=== PATIENT | female | born 1935 | race Caucasian/White ===

== ENCOUNTER 2020-10-22 16:23 | Inpatient (IN) | payer MEDICARE, OTHER ==
[~2020-10-22] VITALS: Ht 162.6 cm; Wt 65.1 kg
[~2020-10-22 16:23] MED LIST: AMLO-213 PO; ASPI81TA44 PO; ATOR40TA PO; BLOO-140 IN; CLON0.5T4 PO; GABA-532 PO; OLOP2.5D12 EACHEYE; REPA1TAB7 PO; SOTA80TA PO; SPIR1TAB4 PO
--- NOTE | 2020-10-22 16:30 | NUR ---
BIB RA [facility] FROM A CARE FACILITY,MORE ALTERED THAN NORMAL X 1 HR. ON ROOM AIR, BREATHING EVENLY AND UNLABORED. CONNECTED TO THE MONITOR ACCORDINGLY.
[2020-10-22 17:11] LABS: BASOPHILS % (AUTO) 0.6 % (0.0-2.0); EOSINOPHILS % (AUTO) 3.3 % (0.0-6.0); HEMATOCRIT 37 % (33-45); HEMOGLOBIN 11.9 g/dL (11.5-14.8); LYMPHOCYTES # (AUTO) 1.8 /CMM (0.8-4.8); LYMPHOCYTES % (AUTO) 22.5 % (20.0-44.0); MEAN CORPUSCULAR HGB CONC 32 g/dl (31.0-36.0); MEAN CORPUSCULAR VOLUME 93 fL (82-100); MONOCYTES # (AUTO) 0.5 /CMM (0.1-1.30); NEUTROPHILS # (AUTO) 5.3 /CMM (1.8-8.9); NEUTROPHILS % (AUTO) 67.6 % (43.0-81.0); PLATELET COUNT (AUTO) 433 /CMM (150-450); RED BLOOD CELL COUNT(AUTO) 3.99 MIL/uL (4.0-5.2); WHITE BLOOD COUNT (AUTO) 7.9 K/uL (4.3-11.0)
[2020-10-22] MEDS ORDERED: ACET-868 PO (17:14)
[2020-10-22] MEDS ORDERED: ASPI-1420 PO (17:14)
[2020-10-22] MEDS ORDERED: POTA8TAB3 PO (17:14)
[2020-10-22] MEDS ORDERED: MULT-447 PO (17:14)
[2020-10-22] MEDS ORDERED: BISA10SU11 RC (17:14)
[2020-10-22] MEDS ORDERED: APIX2.5T PO (17:14)
[2020-10-22] MEDS ORDERED: FURO-144 PO (17:14)
[2020-10-22] MEDS ORDERED: NA P133E RC (17:14)
[2020-10-22] MEDS ORDERED: LORA-259 PO (17:14)
[2020-10-22] MEDS ORDERED: DOCU-141 PO (17:14)
[2020-10-22] MEDS ORDERED: MAGN400O6 PO (17:14)
[2020-10-22] MEDS ORDERED: LISI10TA29 PO (17:14)
[2020-10-22] MEDS ORDERED: PANT40TA2 PO (17:14)
[2020-10-22] MEDS ORDERED: ZOLP10TA2 PO (17:14)
--- NOTE | 2020-10-22 17:15 | NUR ---
RECEIVED REPORT FROM DAY SHIFT NURSE FOR AGUSTÍN, PATIENT RECEIVING BREATHING Tx, VSS. Addendum: 10/22/20 at 1947 by TERRI 1914
[2020-10-22 17:30] LABS: ALANINE AMINOTRANSFERASE 42 U/L (12-78); ALBUMIN 2.6 g/dL (3.4-5.0); ALKALINE PHOSPHATASE 105 U/L (46-116); ASPARTATE AMINOTRANSFERASE 33 U/L (15-37); BILIRUBIN,DIRECT 0.1 mg/dL (0.0-0.2); BILIRUBIN,TOTAL 0.3 mg/dL (0.2-1.0); CALCIUM, SERUM 10.1 mg/dL (8.5-10.1); CARBON DIOXIDE 22 mmol/L (21-32); CHLORIDE 113 mmol/L (98-107); CREATININE 2.8 mg/dL (0.6-1.3); GLUCOSE 92 mg/dL (74-106); SODIUM SERUM 144 mmol/L (136-145); TOTAL PROTEIN, SERUM 7.4 g/dL (6.4-8.2); UREA NITROGEN, BLOOD 74 mg/dL (7-18)
[2020-10-22 17:42] LABS: POTASSIUM 7.2 mmol/L (3.5-5.1)
[2020-10-22 18:01] LABS: BILIRUBIN,URINE Negative (NEGATIVE); COLOR,URINE YELLOW (YELLOW); LEUKOCYTE ESTERASE ,URINE Trace (NEGATIVE); NITRITE, URINE Negative (NEGATIVE); PROTEIN,URINE Negative (NEGATIVE); UGLUCOSE Negative (NEGATIVE); UROBILINOGEN,URINE 0.2 EU/dL (0.2)
--- NOTE | 2020-10-22 18:02 | NUR ---
urine collected and sent to lab.
[2020-10-22 18:13] LABS: BACTERIA,URINE Many /HPF (None Seen); SQUAMOUS EPITHELIAL CELL,UR Many /HPF (None Seen)
[2020-10-22] MEDS ORDERED: INSULIN REGULAR, HUMAN 100 UNIT/ML 10 ML VIAL IV ONE (18:30)
[2020-10-22] MEDS ORDERED: ALBUTEROL FS 2.5 MG/3 ML VIAL.NEB NEB ONE (18:30)
[2020-10-22] MEDS ORDERED: ALBUTEROL FS 2.5 MG/0.5 ML VIAL.NEB NEB ONE (18:30)
[2020-10-22] MEDS ORDERED: SODIUM POLYSTYRENE SULFONATE 15 G/60 ML BOTTLE RC ONE (18:30)
[2020-10-22] MEDS ORDERED: DEXTROSE 50%-WATER 50 ML DISP.SYRIN IV ONE (18:30)
[2020-10-22] MEDS ORDERED: SODIUM POLYSTYRENE SULFONATE 15 G/60 ML BOTTLE ONE (18:33)
[2020-10-22] MEDS ORDERED: DEXTROSE 50%-WATER 50 ML DISP.SYRIN ONE (18:33)
[2020-10-22] MEDS ORDERED: INSULIN REGULAR, HUMAN 100 UNIT/ML 10 ML VIAL ONE (18:33)
[2020-10-22] MEDS ORDERED: ALBUTEROL FS 2.5 MG/3 ML VIAL.NEB ONE (18:42)
[2020-10-22] MEDS ORDERED: MAG HYDROX/AL HYDROX/SIMETH 30 ML UDC PO PRN (19:00)
[2020-10-22] MEDS ORDERED: IV NS 0.9% 500 ML BAG IV ONE (19:00)
[2020-10-22] MEDS ORDERED: ZOLPIDEM TARTRATE 5 MG TABLET PO PRN (19:00)
[2020-10-22] MEDS ORDERED: Z GUARD REMEDY 2 OZ OINT TP PRN (19:00)
[2020-10-22] MEDS ORDERED: MAGNESIUM HYDROXIDE 30 ML UDC PO PRN (19:00)
[2020-10-22] MEDS ORDERED: ONDANSETRON HCL/PF 4 MG/2 ML VIAL IVP PRN (19:00)
[2020-10-22 19:16] LABS: CALCIUM, SERUM 9.6 mg/dL (8.5-10.1); CARBON DIOXIDE 24 mmol/L (21-32); CHLORIDE 114 mmol/L (98-107); CREATININE 2.9 mg/dL (0.6-1.3); GLUCOSE 304 mg/dL (74-106); SODIUM SERUM 144 mmol/L (136-145); UREA NITROGEN, BLOOD 76 mg/dL (7-18)
[2020-10-22 19:17] LABS: POTASSIUM 6.4 mmol/L (3.5-5.1)
[2020-10-22] MEDS ORDERED: DEXTROSE 50%-WATER 50 ML DISP.SYRIN IV PRN (19:30)
[2020-10-22] MEDS ORDERED: IV NS 0.9% 1,000 ML IV PRN (19:30)
--- NOTE | 2020-10-22 20:23 | NUR ---
CALLED TO GIVE REPROT, NURSE PRESTON WILL CALL BACK FOR REPROT
[2020-10-22] MEDS ORDERED: SODIUM POLYSTYRENE SULFONATE 15 G/60 ML BOTTLE PO ONE (20:30)
[2020-10-22 20:33] LABS: CREATININE, URINE 54.8 MG/DL (30.0-125.0)
--- NOTE | 2020-10-22 20:44 | NUR ---
REPROT GIVEN TO KITA EVANS PT GOING TO 108
--- NOTE | 2020-10-22 21:07 | NUR ---
PT TRANSFERRED PER ACLS PROTOCOL
[2020-10-22 22:00] VITALS: BP 95/55
[2020-10-22] MEDS: ATORVASTATIN 40 MG TABLET PO SCH (22:00)
[2020-10-22] MEDS ORDERED: CEFTRIAXONE 1 G VIAL ONE (22:29)
[2020-10-22] MEDS: CEFTRIAXONE 1 G in IV D5W 50 ML IV SCH (22:32)
[2020-10-22] MEDS: BLOOD SUGAR DIAGNOSTIC 1 EACH STRIP IN SCH (22:34)
[2020-10-22] MEDS: IV D5/0.45 NACL 1,000 ML IV SCH (22:35)
[2020-10-23] VITALS: BP 96/32
[2020-10-23 04:00] VITALS: BP 115/77
[2020-10-23 06:31] LABS: BASOPHILS % (AUTO) 0.2 % (0.0-2.0); EOSINOPHILS % (AUTO) 0.4 % (0.0-6.0); HEMATOCRIT 34 % (33-45); HEMOGLOBIN 10.8 g/dL (11.5-14.8); LYMPHOCYTES # (AUTO) 1.1 /CMM (0.8-4.8); LYMPHOCYTES % (AUTO) 13.6 % (20.0-44.0); MEAN CORPUSCULAR HGB CONC 32 g/dl (31.0-36.0); MEAN CORPUSCULAR VOLUME 94 fL (82-100); MONOCYTES # (AUTO) 0.5 /CMM (0.1-1.30); MONOCYTES % (AUTO) 6.2 % (2.0-12.0); NEUTROPHILS # (AUTO) 6.5 /CMM (1.8-8.9); NEUTROPHILS % (AUTO) 79.6 % (43.0-81.0); PLATELET COUNT (AUTO) 384 /CMM (150-450); RED BLOOD CELL COUNT(AUTO) 3.62 MIL/uL (4.0-5.2); WHITE BLOOD COUNT (AUTO) 8.2 K/uL (4.3-11.0)
[2020-10-23 07:25] LABS: CALCIUM, SERUM 9.9 mg/dL (8.5-10.1); CARBON DIOXIDE 20 mmol/L (21-32); CHLORIDE 114 mmol/L (98-107); CREATININE 3.2 mg/dL (0.6-1.3); GLUCOSE 329 mg/dL (74-106); MAGNESIUM 2.6 mg/dL (1.8-2.4); PHOSPHORUS 5.4 mg/dL (2.5-4.9); SODIUM SERUM 146 mmol/L (136-145); UREA NITROGEN, BLOOD 74 mg/dL (7-18)
[2020-10-23 07:41] LABS: POTASSIUM 7.4 mmol/L (3.5-5.1)
[2020-10-23 08:00] VITALS: BP 111/38
--- NOTE | 2020-10-23 08:00 | NUR ---
maintenance mechanic telephone note patient in bed alert with confusion , on tele monitor st on2 l nc saturation, bed in lowest and locked position per dr Rober shepherd to do swallow eval ,safety measure provided , call light within reach , on 2l nc of o2 96% , new hl on lt ac nay 20 inserted ,awaiting for mid line to place , will cont to monitor
[2020-10-23] MEDS: BLOOD SUGAR DIAGNOSTIC 1 EACH STRIP IN SCH ×4 (08:55→21:45)
[2020-10-23] MEDS: DOCUSATE SODIUM 100 MG CAPSULE PO SCH ×2 (08:56→17:00)
[2020-10-23] MEDS: ASPIRIN EC 81 MG TABLET.DR PO SCH (08:56)
[2020-10-23] MEDS: MULTIVIT W/MINERALS 1 TAB TABLET PO SCH (08:56)
[2020-10-23] MEDS: AMLODIPINE BESYLATE 10 MG TABLET PO SCH (08:57)
[2020-10-23] MEDS: APIXABAN 2.5 MG TABLET PO SCH ×2 (09:00→17:02)
[2020-10-23] MEDS: PANTOPRAZOLE 40 MG TABLET.DR PO SCH (09:03)
[2020-10-23] MEDS: INSULIN REGULAR, HUMAN 100 UNIT/ML 3 ML VIAL SQ PRN ×4 (09:04→21:47)
[2020-10-23] MEDS: IV D5/0.45 NACL 1,000 ML IV SCH ×2 (09:28→23:22)
--- NOTE | 2020-10-23 09:30 | NUR ---
television news producer note swallow eval done will have puree diet , able to take po meds , called to dr Rober Zhou notified that k 7.4 stated call to drawer fitter
[2020-10-23] MEDS ORDERED: Calcium Gluconate 1GM/10ML 4.65 MEQ in IV D5W 50 ML IV ONE (10:30)
[2020-10-23] MEDS ORDERED: INSULIN REGULAR, HUMAN 100 UNIT/ML 3 ML VIAL IV ONE (10:30)
[2020-10-23] MEDS ORDERED: DEXTROSE 50%-WATER 50 ML DISP.SYRIN IVP ONE ×2 (10:30)
--- NOTE | 2020-10-23 11:24 | NUR ---
telecommunications professional note dr barreto paper winder called back and yuki Zhou order to redrew bmp also per dr matson administer 10 units insulin iv , 1 gm ca gluconate and 1 amp d50% , done as ordered will monitor closely
--- NOTE | 2020-10-23 11:26 | NUR ---
WOUND CARE CONSULT: REVIEWED CHART, NURSING DOCUMENTATION AND PHOTO WHICH INDICATES UNSTAGEABLE SACRAL ULCER, PRESENT ON ADMISSION. RECOMMENDATIONS MADE FOR SKIN PROTECTION. DISCUSSED WITH NURSING STAFF. DR LÓPEZ CALLED FOR SURGICAL CONSULT. PT IS ON [place] ISOFLEX LOW AIRLOSS BED. MD IN AGREEMENT WITH PLAN OF CARE.
[2020-10-23 11:44] LABS: CALCIUM, SERUM 9.8 mg/dL (8.5-10.1); CARBON DIOXIDE 21 mmol/L (21-32); CHLORIDE 114 mmol/L (98-107); GLUCOSE 261 mg/dL (74-106); SODIUM SERUM 145 mmol/L (136-145); UREA NITROGEN, BLOOD 72 mg/dL (7-18)
[2020-10-23 11:52] LABS: POTASSIUM 6.9 mmol/L (3.5-5.1)
[2020-10-23 12:00] VITALS: BP 120/41
--- NOTE | 2020-10-23 14:28 | NUR ---
television and radio repairer note dr SIMON AWARE OF PATIENT CONDITION ,SPOKE WITH FAMILY
--- NOTE | 2020-10-23 15:57 | NUR ---
RN NOTE SPOKE WITH PATIENTS DAUGHTER, DAUGHTER SAID OKAY FOR PATIENT TO START DIALYSIS. CHARGE NURSE BOSSMAN WITNESSED
[2020-10-23 16:00] VITALS: BP 116/33
--- NOTE | 2020-10-23 16:46 | NUR ---
television anchor note hd cath placed by Rober Zhou dnp on rt femoral
--- NOTE | 2020-10-23 18:30 | NUR ---
telephone lines repairer note hd started as ordered
--- NOTE | 2020-10-23 18:50 | NUR ---
RN CLOSING NOTES PT IS ALERT & ORIENTED WITH SLIGHT CONFUSION. PT IS ON 2L N/C NO SOB, ABLE TO EAT PUREED DIET WELL, FED BY BILLET GRINDER. PT IS ON DIALYSIS, ON IV FLUIDS. ALL NEEDS ATTENDED. BED IN LOWEST POSITION. CALL LIGHT WITHIN REACH. WILL CONTINUE TO MONITOR.
--- NOTE | 2020-10-23 19:40 | NUR ---
RN NOTE PATIENT IN BED AWAKE AND RESPONSIVE. ON O2 2L VIA NASAL CANNULA, NO SIGNS OF RESPIRATORY DISTRESS. NO SIGNS OF DISCOMFORT. ONGOING DIALYSIS VIA RIGHT FEMORAL HD CATH, TOLERATING WELL. WITH MOFFETT CATH, PATENT AND INTACT. IV ACCESS ON LEFT AC #20 AND LEFT UPPER ARM MIDLINE RUNNING D5 1/2 NS @ 75ML/HR. NO SIGNS OF INFILTRATION. BED LOCKED AND IN LOWEST POSITION. SAFETY MEASURES MAINTAINED. CALL LIGHT WITHIN REACH.
[2020-10-23 20:00] VITALS: BP 106/34
[2020-10-23] MEDS: CEFTRIAXONE 1 G in IV D5W 50 ML IV SCH (20:15)
--- NOTE | 2020-10-23 20:15 | NUR ---
PATIENT COMPLETED DIALYSIS. 0 OUTPUT, CLEANING ONLY. ALL NEEDS ANTICIPATED.
[2020-10-23] MEDS: ATORVASTATIN 40 MG TABLET PO SCH (21:35)
[2020-10-24] VITALS: BP 96/49
[2020-10-24 04:00] VITALS: BP 140/57
--- NOTE | 2020-10-24 06:43 | NUR ---
RN NOTE PATIENT ALERT AND ORIENTED X1-2. ON ROOM AIR, O2 SAT 100%. NO SIGNS OF DISCOMFORT. MOFFETT CATH PATENT AND INTACT. IV ACCESS ON LEFT AC #20 AND LEFT UPPER ARM MIDLINE RUNNING D5 1/2 NS @ 75ML/HR. NO SIGNS OF INFILTRATION. TOLERATED BED BATH, TURNED AND REPOSITIONED. BED LOCKED AND IN LOWEST POSITION. SAFETY MEASURES MAINTAINED. CALL LIGHT WITHIN REACH. WILL ENDORSE TO AM SHIFT.
[2020-10-24 06:57] LABS: BASOPHILS % (AUTO) 0.4 % (0.0-2.0); EOSINOPHILS % (AUTO) 3.2 % (0.0-6.0); HEMATOCRIT 31 % (33-45); HEMOGLOBIN 10.2 g/dL (11.5-14.8); LYMPHOCYTES # (AUTO) 1.6 /CMM (0.8-4.8); MEAN CORPUSCULAR HGB CONC 33 g/dl (31.0-36.0); MEAN CORPUSCULAR VOLUME 92 fL (82-100); MONOCYTES # (AUTO) 0.5 /CMM (0.1-1.30); MONOCYTES % (AUTO) 6.3 % (2.0-12.0); NEUTROPHILS % (AUTO) 68.1 % (43.0-81.0); PLATELET COUNT (AUTO) 305 /CMM (150-450); RED BLOOD CELL COUNT(AUTO) 3.33 MIL/uL (4.0-5.2); WHITE BLOOD COUNT (AUTO) 7.4 K/uL (4.3-11.0)
--- NOTE | 2020-10-24 07:44 | NUR ---
GREIGE GOODS INSPECTOR OPENING NOTE RECEIVED PATIENT RESTING IN BED. EASY TO AROUSE. ALERT AND ORIENTED X1-2. SURINAMESE/TAMAZIGHT SPEAKING. STABLE ON ROOM AIR, O2 SAT 100% - NO SIGNS OF SOB OR DISCOMFORT. MOFFETT CATH PATENT AND INTACT, DRAINING TO GRAVITY. IV ACCESS TO LEFT AC #20 - PATENT AND INTACT, LEFT UPPER ARM MIDLINE - RUNNING D5 1/2 NS @ 75ML/HR. SAFETY MEASURES IN PLACE. CALL LIGHT WITHIN REACH. WILL CONTINUE TO MONITOR.
[2020-10-24 07:47] LABS: CALCIUM, SERUM 9.1 mg/dL (8.5-10.1); CARBON DIOXIDE 23 mmol/L (21-32); CHLORIDE 110 mmol/L (98-107); CREATININE 2.1 mg/dL (0.6-1.3); GLUCOSE 193 mg/dL (74-106); MAGNESIUM 2.3 mg/dL (1.8-2.4); PHOSPHORUS 3.1 mg/dL (2.5-4.9); POTASSIUM 5.6 mmol/L (3.5-5.1); SODIUM SERUM 142 mmol/L (136-145); UREA NITROGEN, BLOOD 44 mg/dL (7-18)
[2020-10-24 08:00] VITALS: BP 133/57
[2020-10-24] MEDS: BLOOD SUGAR DIAGNOSTIC 1 EACH STRIP IN SCH ×4 (08:17→21:35)
[2020-10-24] MEDS: PANTOPRAZOLE 40 MG TABLET.DR PO SCH (08:17)
[2020-10-24] MEDS: DOCUSATE SODIUM 100 MG CAPSULE PO SCH ×2 (08:18→17:10)
[2020-10-24] MEDS: MULTIVIT W/MINERALS 1 TAB TABLET PO SCH (08:18)
[2020-10-24] MEDS: ASPIRIN EC 81 MG TABLET.DR PO SCH (08:18)
[2020-10-24] MEDS: AMLODIPINE BESYLATE 10 MG TABLET PO SCH (08:20)
[2020-10-24] MEDS: APIXABAN 2.5 MG TABLET PO SCH ×2 (08:21→17:10)
[2020-10-24] MEDS: INSULIN REGULAR, HUMAN 100 UNIT/ML 3 ML VIAL SQ PRN ×3 (08:29→21:38)
[2020-10-24 12:00] VITALS: BP 106/52
[2020-10-24] MEDS: IV D5/0.45 NACL 1,000 ML IV SCH (12:52)
[2020-10-24 16:02] VITALS: BP 106/52
--- NOTE | 2020-10-24 16:15 | NUR ---
THERAPEUTIC SALES SPECIALIST NOTE NOTED PATIENT'S LEFT ARM MORE SWOLLEN THAN THIS MORNING. BP ALSO LOW @ 99/44. DR. APPIAH NOTIFIED - ASSESSED PATIENT. NO ORDERS GIVEN. PATIENT TO RECEIVE DIALYSIS LATER TODAY.
--- NOTE | 2020-10-24 19:16 | NUR ---
COACH MECHANIC CLOSING NOTE PATIENT CURRENTLY LYING IN BED, DIALYSIS NURSE AT BEDSIDE - PATIENT IS CURRENTLY RECEIVING DIALYSIS. A/O X2-3, PATIENT IS CONFUSED. LUCILLE, SON AT BEDSIDE WELL. UGANDAN/KOSOVAN SPEAKING, UNDERSTANDS SOME KHMER. STABLE ON ROOM AIR, O2 SAT 100% - NO SIGNS OF SOB OR DISCOMFORT. MOFFETT CATH PATENT AND INTACT, DRAINING TO GRAVITY, 700CC OUTPUT THIS SHIFT. IV ACCESS TO LEFT UPPER ARM MIDLINE - RUNNING D5 1/2 NS @ 75ML/HR. LEFT ARM SWELLING FROM MIDLINE INSERTION - PHOTO TAKEN AND IN CHART. MD AWARE. SAFETY MEASURES IN PLACE. CALL LIGHT WITHIN REACH. REPORT GIVEN TO WINDOW GLAZIER HELPER NURSE FOR AGUSTÍN.
--- NOTE | 2020-10-24 19:25 | NUR ---
RN NOTE PATIENT IN BED AWAKE AND RESPONSIVE. ON ROOM AIR, NO SIGNS OF RESPIRATORY DISTRESS. ONGOING DIALYSIS AT THIS TIME, TOLERATING WELL. MOFFETT CATH PATENT AND INTACT, YELLOW URINE DRAINING VIA GRAVITY. NO SIGNS OF DISCOMFORT. IV ACCESS ON LEFT AC #20 AND ANGELITO MIDLINE RUNNING D5 1/2 NS @ 75 ML/HR. BED LOCKED AND IN LOWEST POSITION. CALL LIGHT WITHIN REACH. ALL NEEDS ANTICIPATED.
[2020-10-24 20:00] VITALS: BP 119/45
--- NOTE | 2020-10-24 20:45 | NUR ---
DIALYSIS DONE. 250 ML REMOVED. VITAL SIGNS STABLE.
[2020-10-24] MEDS: ATORVASTATIN 40 MG TABLET PO SCH (21:35)
[2020-10-24] MEDS: ACETAMINOPHEN 325 MG TABLET PO PRN (21:35)
[2020-10-25] VITALS: BP 121/41
[2020-10-25] MEDS: IV D5/0.45 NACL 1,000 ML IV SCH ×2 (02:08→15:03)
[2020-10-25 04:00] VITALS: BP 120/41
[2020-10-25 06:29] LABS: BASOPHILS % (AUTO) 0.5 % (0.0-2.0); EOSINOPHILS % (AUTO) 4.2 % (0.0-6.0); HEMATOCRIT 29 % (33-45); HEMOGLOBIN 9.5 g/dL (11.5-14.8); LYMPHOCYTES # (AUTO) 2.5 K/uL (0.8-4.8); LYMPHOCYTES % (AUTO) 36.4 % (20.0-44.0); MEAN CORPUSCULAR HGB CONC 33 g/dl (31.0-36.0); MEAN CORPUSCULAR VOLUME 92 fL (82-100); MONOCYTES # (AUTO) 0.5 K/uL (0.1-1.30); MONOCYTES % (AUTO) 7.5 % (2.0-12.0); NEUTROPHILS # (AUTO) 3.5 K/uL (1.8-8.9); NEUTROPHILS % (AUTO) 51.4 % (43.0-81.0); PLATELET COUNT (AUTO) 263 K/uL (150-450); RED BLOOD CELL COUNT(AUTO) 3.18 MIL/uL (4.0-5.2); WHITE BLOOD COUNT (AUTO) 6.8 K/uL (4.3-11.0)
--- NOTE | 2020-10-25 06:41 | NUR ---
RN NOTE PATIENT ALERT AND ORIENTED X1-2. ON ROOM AIR, NO SIGNS OF RESPIRATORY DISTRESS. MOFFETT CATH PATENT AND INTACT, YELLOW URINE DRAINING VIA GRAVITY OUTPUT 600CC. NO SIGNS OF DISCOMFORT. IV ACCESS ON LEFT AC #20 AND ANGELITO MIDLINE RUNNING D5 1/2 NS @ 75 ML/HR. RIGHT FEMORAL HD CATH NOTED, DRESSING DRY AND INTACT. NO SIGNIFICANT CHANGES DURING THIS SHIFT. BED LOCKED AND IN LOWEST POSITION. CALL LIGHT WITHIN REACH. WILL ENDORSE TO AM SHIFT.
[2020-10-25 07:09] LABS: CALCIUM, SERUM 8.7 mg/dL (8.5-10.1); CARBON DIOXIDE 24 mmol/L (21-32); CHLORIDE 108 mmol/L (98-107); CREATININE 1.7 mg/dL (0.6-1.3); GLUCOSE 174 mg/dL (74-106); MAGNESIUM 2.1 mg/dL (1.8-2.4); PHOSPHORUS 2.8 mg/dL (2.5-4.9); POTASSIUM 5.6 mmol/L (3.5-5.1); SODIUM SERUM 139 mmol/L (136-145); UREA NITROGEN, BLOOD 34 mg/dL (7-18)
[2020-10-25] MEDS: BLOOD SUGAR DIAGNOSTIC 1 EACH STRIP IN SCH ×3 (07:30→16:58)
[2020-10-25] MEDS: PANTOPRAZOLE 40 MG TABLET.DR PO SCH ×2 (07:30→08:33)
--- NOTE | 2020-10-25 07:30 | NUR ---
RN OPENING NOTE GREEK SPEAKING PT IN BED SEMIFOWLER'S A/Ox1-2, SR 60s ON TELEBOX. PT HAS LT ARM BRUISING, PARKING LOT SIGNALER CLAY APPIAH AWARE- OK TO GIVE ANTICOAGULANTS PER CLAY. PT HAS ANGELITO MIDLINE INTACT, CURRENTLY INFUSING D5 1/2 NS @ 75 ML/HR, LAC #20 FLUSHED AND INTACT, BOTH PATENT WITH NO SIGNS OF INFECTION OR INFILTRATION. RT FEMORAL HD CATH NOTED. PT MOFFETT CATH INTACT AND DRAINING CLEAR YELLOW URINE TO GRAVITY. PT SACRAL WOUND NOTED, CLEAN DRY DRSG INTACT. ALL PT SAFETY PRECAUTIONS IN PLACE, WILL CONT TO MONITOR
[2020-10-25 08:00] VITALS: BP 122/47
--- NOTE | 2020-10-25 08:30 | NUR ---
RN NOTE PT REFUSED MORNING MEDS AND ACCUCHECK. ATTEMPTED MULTIPLE TIMES WITH NO SUCCESS
[2020-10-25] MEDS: DOCUSATE SODIUM 100 MG CAPSULE PO SCH ×3 (08:33→16:53)
[2020-10-25] MEDS: ASPIRIN EC 81 MG TABLET.DR PO SCH ×2 (08:33→09:00)
[2020-10-25] MEDS: MULTIVIT W/MINERALS 1 TAB TABLET PO SCH ×2 (08:33→09:00)
[2020-10-25] MEDS: AMLODIPINE BESYLATE 10 MG TABLET PO SCH ×2 (08:34→09:00)
[2020-10-25] MEDS: APIXABAN 2.5 MG TABLET PO SCH ×2 (09:00→16:56)
[2020-10-25] MEDS: HYDROGEL DRESSING 90 GM TUBE TP SCH (10:20)
[2020-10-25 12:00] VITALS: BP 127/47
[2020-10-25] MEDS: INSULIN REGULAR, HUMAN 100 UNIT/ML 3 ML VIAL SQ PRN ×2 (12:29→16:57)
[2020-10-25] MEDS: ACETAMINOPHEN 325 MG TABLET PO PRN (12:42)
[2020-10-25 16:00] VITALS: BP 114/30
--- NOTE | 2020-10-25 19:00 | NUR ---
RN CLOSING NOTE NO CHANGES TO PT DURING SHIFT. PT CURRENTLY RECEIVING HEMODIALYSIS. PT SON AT BEDSIDE. ALL PT SAFETY PRECAUTIONS IN PLACE, AGUSTÍN ENDORSED TO BOILERS AND PRESSURE VESSELS INSPECTOR RN
[2020-10-25 20:00] VITALS: BP 121/48
[2020-10-25] MEDS: ATORVASTATIN 40 MG TABLET PO SCH (22:00)
[2020-10-26] VITALS: BP 142/39
[2020-10-26] MEDS: BLOOD SUGAR DIAGNOSTIC 1 EACH STRIP IN SCH ×5 (01:49→23:04)
--- NOTE | 2020-10-26 02:53 | NUR ---
RN notes Received patient in bed resting comfortably with no distress noted. Breathing even and unlabored. Alert with confusion. Sami speaking with very little kown hebrew. Aggressive and anxious. S/p dialysis with output of 1,100ml. No side effect noted. No complaint of pain or discomfort. No significant change of conition. Kept clean and dry. Will endorse to next shift for continuity of care.
[2020-10-26 04:00] VITALS: BP 115/39
[2020-10-26 06:28] LABS: BASOPHILS % (AUTO) 0.7 % (0.0-2.0); EOSINOPHILS % (AUTO) 4.2 % (0.0-6.0); HEMATOCRIT 27 % (33-45); LYMPHOCYTES % (AUTO) 31.6 % (20.0-44.0); MEAN CORPUSCULAR HGB CONC 33 g/dl (31.0-36.0); MEAN CORPUSCULAR VOLUME 91 fL (82-100); MONOCYTES # (AUTO) 0.4 K/uL (0.1-1.30); MONOCYTES % (AUTO) 6.3 % (2.0-12.0); NEUTROPHILS # (AUTO) 3.6 K/uL (1.8-8.9); NEUTROPHILS % (AUTO) 57.2 % (43.0-81.0); PLATELET COUNT (AUTO) 223 K/uL (150-450); RED BLOOD CELL COUNT(AUTO) 2.99 MIL/uL (4.0-5.2); WHITE BLOOD COUNT (AUTO) 6.4 K/uL (4.3-11.0)
[2020-10-26 06:55] LABS: CALCIUM, SERUM 8.6 mg/dL (8.5-10.1); CARBON DIOXIDE 29 mmol/L (21-32); CHLORIDE 105 mmol/L (98-107); CREATININE 1.4 mg/dL (0.6-1.3); GLUCOSE 110 mg/dL (74-106); MAGNESIUM 1.9 mg/dL (1.8-2.4); POTASSIUM 4.8 mmol/L (3.5-5.1); SODIUM SERUM 140 mmol/L (136-145); UREA NITROGEN, BLOOD 19 mg/dL (7-18)
--- NOTE | 2020-10-26 07:30 | NUR ---
RN OPENING NOTE AZERI SPEAKING PT IN BED SEMIFOWLER'S A/Ox1-2, SB 50s TO SR 60s ON TELEBOX. PT HAS LT ARM BRUISING, NEIGHBORHOOD AIDE CLAY APPIAH AWARE- OK TO GIVE ANTICOAGULANTS PER CLAY. PT HAS HUSEYIN MIDLINE INTACT, FLUSHED AND AND PATENT WITH NO SIGNS OF INFECTION OR INFILTRATION. RT FEMORAL HD CATH NOTED. PT MOFFETT CATH INTACT AND DRAINING CLEAR YELLOW URINE TO GRAVITY. PT SACRAL WOUND NOTED, CLEAN DRY DRSG INTACT. ALL PT SAFETY PRECAUTIONS IN PLACE, WILL CONT TO MONITOR
[2020-10-26 08:00] VITALS: BP 137/33
[2020-10-26] MEDS: MULTIVIT W/MINERALS 1 TAB TABLET PO SCH (08:08)
[2020-10-26] MEDS: DOCUSATE SODIUM 100 MG CAPSULE PO SCH ×2 (08:08→17:36)
[2020-10-26] MEDS: PANTOPRAZOLE 40 MG TABLET.DR PO SCH (08:08)
[2020-10-26] MEDS: ASPIRIN EC 81 MG TABLET.DR PO SCH (08:08)
[2020-10-26] MEDS: APIXABAN 2.5 MG TABLET PO SCH ×2 (08:11→17:37)
[2020-10-26] MEDS: AMLODIPINE BESYLATE 10 MG TABLET PO SCH (08:27)
--- NOTE | 2020-10-26 08:58 | NUR ---
KITA NOTE PT AGUSTÍN ENDORSED TO KITA MULLIGAN. ALL PT SAFETY PRECAUTIONS IN PLACE Addendum: 10/26/20 at 1007 by SAÚL ORELLANA RN neelam monroy notified of pt's malnutrition/poor po intake
[2020-10-26] MEDS: HYDROGEL DRESSING 90 GM TUBE TP SCH (09:09)
--- NOTE | 2020-10-26 09:50 | NUR ---
RN NOTE ENDORSED TO TRINA EAST FOR AGUSTÍN.
[2020-10-26 12:00] VITALS: BP 147/66
--- NOTE | 2020-10-26 12:00 | NUR ---
RN NOTE PT REPORT GIVEN BY KITA LEMON FOR AGUSTÍN
[2020-10-26] MEDS: INSULIN REGULAR, HUMAN 100 UNIT/ML 3 ML VIAL SQ PRN ×3 (13:36→23:08)
[2020-10-26] MEDS ORDERED: NEPRO VAN 237 ML CAN PO PRN (14:00)
[2020-10-26 16:00] VITALS: BP 151/55
[2020-10-26] MEDS: ACETAMINOPHEN 325 MG TABLET PO PRN (17:36)
--- NOTE | 2020-10-26 18:00 | NUR ---
PO INTAKE: BREAKFAST 75%, LUNCH 75%, DINNER 100% - NO NGT REQUIRED PER SOLOIST DANCER CLAY APPIAH
--- NOTE | 2020-10-26 19:10 | NUR ---
RN CLOSING NOTE NO CHANGES TO PT DURING SHIFT, PT SLIGHTLY MORE CONFUSED NOW THAN EARLIER, ENDORSED. PT BREATHING RA WITH NO SIGNS OF RESP DISTRESS OR SOB. ALL PT SAFETY PRECAUTIONS IN PLACE, AGUSTÍN ENDORSED TO CORE MICROARCHITECT RN
[2020-10-26 20:00] VITALS: BP 129/59
[2020-10-26] MEDS: ATORVASTATIN 40 MG TABLET PO SCH (22:00)
[2020-10-27 04:00] VITALS: BP 135/39
--- NOTE | 2020-10-27 04:25 | NUR ---
RN notes In bed resting comfortably with no distress or shortness of breath. Breathing even and unlabored. On room air tolerating well. Alert with confusion. No physical manifestation of pain or discomfort. No significant change of condition. Kept clean and dry.
[2020-10-27 07:05] LABS: BASOPHILS # (AUTO) 0.1 K/uL (0.0-0.2); BASOPHILS % (AUTO) 0.9 % (0.0-2.0); EOSINOPHILS % (AUTO) 3.9 % (0.0-6.0); HEMATOCRIT 30 % (33-45); LYMPHOCYTES # (AUTO) 2.5 K/uL (0.8-4.8); LYMPHOCYTES % (AUTO) 35.9 % (20.0-44.0); MEAN CORPUSCULAR HGB CONC 33 g/dl (31.0-36.0); MEAN CORPUSCULAR VOLUME 91 fL (82-100); MONOCYTES # (AUTO) 0.5 K/uL (0.1-1.30); MONOCYTES % (AUTO) 7.8 % (2.0-12.0); NEUTROPHILS # (AUTO) 3.6 K/uL (1.8-8.9); NEUTROPHILS % (AUTO) 51.5 % (43.0-81.0); PLATELET COUNT (AUTO) 253 K/uL (150-450); RED BLOOD CELL COUNT(AUTO) 3.32 MIL/uL (4.0-5.2)
--- NOTE | 2020-10-27 07:30 | NUR ---
RN OPENING NOTES PATIENT RECEIVED IN BED RESTING IN SEMI-FOWLERS POSITION. PATIENT ON ROOM AIR TOLERATING WELL. NO COMPLAINTS OF PAIN OR SIGNS OF SOB NOTED. R UPPER ARM MIDLINE INTACT AND PATENT. SAFETY PRECAUTIONS IMPLEMENTED, BED LOCKED IN LOW POSITION, SIDE RAILS UP X2, CALL LIGHT WITHIN REACH. WILL CONTINUE TO MONITOR AND PROVIDE CARE THROUGHOUT SHIFT.
[2020-10-27 07:31] LABS: CALCIUM, SERUM 9.4 mg/dL (8.5-10.1); CARBON DIOXIDE 28 mmol/L (21-32); CHLORIDE 104 mmol/L (98-107); CREATININE 1.5 mg/dL (0.6-1.3); GLUCOSE 151 mg/dL (74-106); MAGNESIUM 2.1 mg/dL (1.8-2.4); PHOSPHORUS 2.9 mg/dL (2.5-4.9); POTASSIUM 4.6 mmol/L (3.5-5.1); SODIUM SERUM 139 mmol/L (136-145); UREA NITROGEN, BLOOD 24 mg/dL (7-18)
[2020-10-27 08:00] VITALS: BP 147/67
[2020-10-27] MEDS: BLOOD SUGAR DIAGNOSTIC 1 EACH STRIP IN SCH ×4 (08:02→21:55)
[2020-10-27] MEDS: MULTIVIT W/MINERALS 1 TAB TABLET PO SCH (08:07)
[2020-10-27] MEDS: DOCUSATE SODIUM 100 MG CAPSULE PO SCH ×2 (08:07→16:31)
[2020-10-27] MEDS: PANTOPRAZOLE 40 MG TABLET.DR PO SCH (08:07)
[2020-10-27] MEDS: ASPIRIN EC 81 MG TABLET.DR PO SCH (08:07)
[2020-10-27] MEDS: APIXABAN 2.5 MG TABLET PO SCH ×2 (08:10→16:32)
[2020-10-27] MEDS: AMLODIPINE BESYLATE 10 MG TABLET PO SCH (08:11)
[2020-10-27] MEDS: HYDROGEL DRESSING 90 GM TUBE TP SCH (08:15)
[2020-10-27] MEDS: INSULIN REGULAR, HUMAN 100 UNIT/ML 3 ML VIAL SQ PRN ×4 (08:19→22:08)
[2020-10-27 16:00] VITALS: BP 117/70
--- NOTE | 2020-10-27 18:52 | NUR ---
RN CLOSING NOTES PATIENT IN BED RESTING IN SEMI-FOWLERS POSITION. PATIENT ON ROOM AIR TOLERATING WELL. NO COMPLAINTS OF PAIN OR SIGNS OF SOB NOTED. R UPPER ARM MIDLINE INTACT AND PATENT. MOFFETT CATHETER DRAINING URINE VIA GRAVITY. SAFETY PRECAUTIONS IMPLEMENTED, BED LOCKED IN LOW POSITION, SIDE RAILS UP X2, CALL LIGHT WITHIN REACH. WILL ENDORSE CARE TO UPCOMING SHIFT.
[2020-10-27 20:00] VITALS: BP 119/41
[2020-10-27] MEDS: ATORVASTATIN 40 MG TABLET PO SCH (21:54)
[2020-10-28 04:00] VITALS: BP 121/34
[2020-10-28 06:27] LABS: BASOPHILS # (AUTO) 0.1 K/uL (0.0-0.2); BASOPHILS % (AUTO) 0.6 % (0.0-2.0); EOSINOPHILS % (AUTO) 4.6 % (0.0-6.0); HEMATOCRIT 30 % (33-45); HEMOGLOBIN 9.9 g/dL (11.5-14.8); LYMPHOCYTES # (AUTO) 2.8 K/uL (0.8-4.8); LYMPHOCYTES % (AUTO) 34.1 % (20.0-44.0); MEAN CORPUSCULAR HGB CONC 33 g/dl (31.0-36.0); MEAN CORPUSCULAR VOLUME 92 fL (82-100); MONOCYTES # (AUTO) 0.6 K/uL (0.1-1.30); MONOCYTES % (AUTO) 7.4 % (2.0-12.0); NEUTROPHILS # (AUTO) 4.4 K/uL (1.8-8.9); NEUTROPHILS % (AUTO) 53.3 % (43.0-81.0); PLATELET COUNT (AUTO) 247 K/uL (150-450); RED BLOOD CELL COUNT(AUTO) 3.26 MIL/uL (4.0-5.2); WHITE BLOOD COUNT (AUTO) 8.3 K/uL (4.3-11.0)
--- NOTE | 2020-10-28 07:10 | NUR ---
RN OPENING NOTE RECEIVED PATIENT IN BED. A/O X1-2. ON ROOM AIR, TOLERATING WELL. NO SOB NOTED. IN NO APPARENT DISTRESS. IV ACCESS ON HUSEYIN MIDLINE, INTACT AND PATENT. R FEM HD CATH. SAFETY MEASURES MAINTAINED. BED IN LOWEST POSITION, BRAKES LOCKED SIDE RAIL UP X2 . CALL LIGHT WITHIN REACH. WILL CONTINUE PLAN OF CARE.
[2020-10-28 07:42] LABS: CALCIUM, SERUM 9.2 mg/dL (8.5-10.1); CARBON DIOXIDE 24 mmol/L (21-32); CHLORIDE 105 mmol/L (98-107); CREATININE 1.5 mg/dL (0.6-1.3); GLUCOSE 131 mg/dL (74-106); MAGNESIUM 1.9 mg/dL (1.8-2.4); PHOSPHORUS 3.1 mg/dL (2.5-4.9); SODIUM SERUM 139 mmol/L (136-145); UREA NITROGEN, BLOOD 25 mg/dL (7-18)
[2020-10-28] MEDS: MULTIVIT W/MINERALS 1 TAB TABLET PO SCH (08:05)
[2020-10-28] MEDS: AMLODIPINE BESYLATE 10 MG TABLET PO SCH (08:05)
[2020-10-28] MEDS: PANTOPRAZOLE 40 MG TABLET.DR PO SCH (08:05)
[2020-10-28] MEDS: DOCUSATE SODIUM 100 MG CAPSULE PO SCH ×2 (08:05→16:09)
[2020-10-28] MEDS: ASPIRIN EC 81 MG TABLET.DR PO SCH (08:05)
[2020-10-28] MEDS: APIXABAN 2.5 MG TABLET PO SCH ×2 (08:07→16:10)
[2020-10-28] MEDS: INSULIN REGULAR, HUMAN 100 UNIT/ML 3 ML VIAL SQ PRN ×2 (08:20→12:12)
[2020-10-28] MEDS: BLOOD SUGAR DIAGNOSTIC 1 EACH STRIP IN SCH ×4 (08:23→21:24)
[2020-10-28] MEDS: HYDROGEL DRESSING 90 GM TUBE TP SCH (09:31)
[2020-10-28 12:00] VITALS: BP 128/34
[2020-10-28] MEDS: ACETAMINOPHEN 325 MG TABLET PO PRN (12:35)
--- NOTE | 2020-10-28 18:20 | NUR ---
RN CLOSING NOTE PATIENT RESTING IN BED. A/O X1. CONFUSED. ON ROOM AIR, SATURATING WELL AT 96%. NO SOB NOTED. NO S/S OF RESPIRATORY DISTRESS. IV ACCESS ON HUSEYIN MIDLINE, INTACT AND PATENT. R FEM HD CATH C/D/I. MOFFETT CATH IN PLACE, DRAINING YELLOW URINE, 500 CC OUTPUT. ROUTINE MEDS WERE GIVEN ORDERED. WOUND TREATMENT ORDERED. INSULIN GIVEN PER PROTOCOL. SAFETY MEASURES MAINTAINED. BED IN LOWEST POSITION, BRAKES LOCKED SIDE RAIL UP X2 . CALL LIGHT WITHIN REACH. WILL ENDORSE CONTINUITY OF CARE TO ONCOMING SHIFT.
--- NOTE | 2020-10-28 19:30 | NUR ---
MS1 RN NOTES RECEIVED ON BED A/O X1,CONFUSED,MARTINIQUAIS SPEAKING,BREATHING REGULAR,NOT IN ANY FORM OF DISTRESS,O2 SAT WITH IN NORMAL LIMITS ON ROOM AIR.WITH HUSEYIN MIDLINE FOR MEDS,RIGHT FEMORAL HD CATH FOR HEMODIALYSIS TREATMENT.WITH MOFFETT CATH IN PLACE DRAINS YELLOWISH URINE OUTPUT,MINIMAL AMOUNT AT THE MOMENT.WITH SACRAL WOUND,DRESSING INTACT AND DRY.CALL LIGHT IN REACH,NEEDS ANTICIPATED.
[2020-10-28 20:00] VITALS: BP 123/61
[2020-10-28] MEDS: ATORVASTATIN 40 MG TABLET PO SCH (21:24)
--- NOTE | 2020-10-28 21:30 | NUR ---
MS1 RN NOTES ACCU-CHECK BLOOD SUGAR CHECK 126MG/DL.NO INSULIN COVERAGE.
[2020-10-29 01:00] VITALS: BP 139/47
--- NOTE | 2020-10-29 01:00 | NUR ---
PROBATE JUDGE NOTE PATIENT TRANSFERRED TO 311-1 FROM [facility], REPORT GIVEN BY HEIDY EAST. PATIENT STABLE AT THIS TIME, TOLERATING ROOM AIR AT 98%. PATIENT IS ONLY A/O X 1, CONFUSED. PATIENT HAS A MOFFETT CATHETER, DRAINING YELLOW CLEAR URINE. HUSEYIN MIDLINE 18 G PATENT AND INTACT, SHE ALSO HAS A RIGHT FEMORAL HD CATH PRESENT. SACRAL DRESSING CLEAN AND DRY. PATIENT NOT IN ANY APPARENT DISTRESS. SAFETY MEASURES IN PLACE: BED IN LOCKED AND LOWEST POSITION, CALL LIGHT WITHIN REACH, SIDE RAILS UP. WILL MONITOR PATIENT CLOSELY.
--- NOTE | 2020-10-29 01:00 | NUR ---
MS1 RN NOTES PATIENT WAS TRANSFERRED TO [address] [place], [place] [address]ROOM 311-1 BY BED IN STABLE CONDITION.REPORT GIVEN TO RUBÉN EAST.
[2020-10-29] MEDS: BLOOD SUGAR DIAGNOSTIC 1 EACH STRIP IN SCH ×4 (06:49→22:29)
--- NOTE | 2020-10-29 06:49 | NUR ---
RN CLOSING NOTE PATIENT IN BED, EYES CLOSED. BS 120 MG/DL, NO INSULIN COVERAGE GIVEN. BREATHING EVEN AND UNLABORED, TOLERATING ROOM AIR. PATIENT CONFUSED, AND IS AGITATED. IV ACCESS PATENT AND INTACT. WOUND TX PROVIDED ON SACRAL ULCER. MOFFETT CATHETER STILL IN PLACE, DRAINING YELLOW CLEAR URINE. ALL NEEDS MET AND ATTENDED, ALL ORDERS CARRIED OUT. SAFETY MEASURES MAINTAINED: WILL ENDORSE TO DAY SHIFT NURSE FOR AGUSTÍN.
[2020-10-29 06:50] LABS: BASOPHILS # (AUTO) 0.1 K/uL (0.0-0.2); BASOPHILS % (AUTO) 0.7 % (0.0-2.0); EOSINOPHILS % (AUTO) 3.5 % (0.0-6.0); HEMATOCRIT 28 % (33-45); HEMOGLOBIN 9.4 g/dL (11.5-14.8); LYMPHOCYTES # (AUTO) 2.2 K/uL (0.8-4.8); LYMPHOCYTES % (AUTO) 28.4 % (20.0-44.0); MEAN CORPUSCULAR HGB CONC 33 g/dl (31.0-36.0); MEAN CORPUSCULAR VOLUME 92 fL (82-100); MONOCYTES # (AUTO) 0.6 K/uL (0.1-1.30); MONOCYTES % (AUTO) 7.7 % (2.0-12.0); NEUTROPHILS # (AUTO) 4.6 K/uL (1.8-8.9); NEUTROPHILS % (AUTO) 59.7 % (43.0-81.0); PLATELET COUNT (AUTO) 249 K/uL (150-450); RED BLOOD CELL COUNT(AUTO) 3.07 MIL/uL (4.0-5.2); WHITE BLOOD COUNT (AUTO) 7.7 K/uL (4.3-11.0)
[2020-10-29 07:17] LABS: CALCIUM, SERUM 9.3 mg/dL (8.5-10.1); CARBON DIOXIDE 27 mmol/L (21-32); CHLORIDE 105 mmol/L (98-107); CREATININE 1.6 mg/dL (0.6-1.3); GLUCOSE 138 mg/dL (74-106); MAGNESIUM 2.1 mg/dL (1.8-2.4); PHOSPHORUS 3.9 mg/dL (2.5-4.9); POTASSIUM 5.4 mmol/L (3.5-5.1); SODIUM SERUM 139 mmol/L (136-145); UREA NITROGEN, BLOOD 27 mg/dL (7-18)
--- NOTE | 2020-10-29 07:46 | NUR ---
MS RN OPENING NOTES RECEIVED PATIENT IN BED, ASLEEP. PATIENT ON ROOM AIR; BREATHING EVEN AND UNLABORED, NO SOB NOTED. NO S/S OF PAIN SUCH FACIAL GRIMACING, MOANING OR GUARDING AT THIS TIME. MOFFETT CATH IN PLACE DRAINING CLEAR YELLOW URINE. HUSEYIN MIDLINE G # 18 AND R FEMORAL HD CATH PRESENT. SAFETY PRECAUTIONS IN PLACE; BED IN LOW POSITION AND LOCKED, RAILS UP X2, CALL LIGHT WITHIN REACH. WILL CONTINUE TO MONITOR PATIENT.
[2020-10-29 08:00] VITALS: BP 126/56
[2020-10-29] MEDS: DOCUSATE SODIUM 100 MG CAPSULE PO SCH ×2 (08:16→16:01)
[2020-10-29] MEDS: MULTIVIT W/MINERALS 1 TAB TABLET PO SCH (08:16)
[2020-10-29] MEDS: PANTOPRAZOLE 40 MG TABLET.DR PO SCH (08:16)
[2020-10-29] MEDS: ASPIRIN EC 81 MG TABLET.DR PO SCH (08:16)
[2020-10-29] MEDS: AMLODIPINE BESYLATE 10 MG TABLET PO SCH (08:17)
[2020-10-29] MEDS: APIXABAN 2.5 MG TABLET PO SCH ×2 (08:18→16:02)
[2020-10-29] MEDS: HYDROGEL DRESSING 90 GM TUBE TP SCH (08:24)
[2020-10-29] MEDS ORDERED: SODIUM POLYSTYRENE SULF. PWD 15 GM UDC PO ONE (09:00)
[2020-10-29] MEDS: INSULIN REGULAR, HUMAN 100 UNIT/ML 3 ML VIAL SQ PRN (11:35)
[2020-10-29 16:00] VITALS: BP 115/64
--- NOTE | 2020-10-29 18:53 | NUR ---
MS RN CLOSING NOTES PATIENT REMAINS IN BED, AWAKE, A/O X1. PATIENT ON ROOM AIR; BREATHING EVEN AND UNLABORED, NO SOB NOTED. NO COMPLAINS OF PAIN DURING SHIFT. MOFFETT CATH IN PLACE DRAINING CLEAR YELLOW URINE WITH DAILY OUTPUT OF 450 MLS. HUSEYIN MIDLINE G # 18 AND R FEMORAL HD CATH PRESENT. ALL NEEDS ATTENDED DURING THE DAY. SAFETY PRECAUTIONS IN PLACE; BED IN LOW POSITION AND LOCKED, RAILS UP X2, CALL LIGHT WITHIN REACH. WILL ENDORSE TO EMPLOYMENT PROGRAMS ANALYST NURSE.
--- NOTE | 2020-10-29 19:45 | NUR ---
MS OPENING NOTES Patient is A&Ox1, calm and pleasant with family member at bedside. Clear yellow output to pritchett catheter seen, no s/s of infection at HD insertion site. HUSEYIN PICC line present with no s/s of infection noted. Currently doing active ROM exercises in bed. Will continue to monitor.
[2020-10-29 20:00] VITALS: BP 14/51
--- NOTE | 2020-10-29 22:00 | NUR ---
Patient checked on and seen to be bleeding, upon further inspection her hemodialysis catheter had been pulled out as well as pritchett catheter, on the floor midline was spotted. Moderate amount of bleeding seen to jerome. Able to stop bleeding. Contacted MD with order for STAT CBC and to reinsert catheter for strict I&Os as well as wound to sacrum. B/P 125/63, HR 91.
[2020-10-29] MEDS: ATORVASTATIN 40 MG TABLET PO SCH (22:28)
[2020-10-29 23:43] LABS: BASOPHILS # (AUTO) 0.1 K/uL (0.0-0.2); BASOPHILS % (AUTO) 0.9 % (0.0-2.0); HEMATOCRIT 31 % (33-45); HEMOGLOBIN 10.1 g/dL (11.5-14.8); LYMPHOCYTES # (AUTO) 2.3 K/uL (0.8-4.8); LYMPHOCYTES % (AUTO) 27.7 % (20.0-44.0); MEAN CORPUSCULAR HGB CONC 33 g/dl (31.0-36.0); MEAN CORPUSCULAR VOLUME 93 fL (82-100); MONOCYTES # (AUTO) 0.7 K/uL (0.1-1.30); MONOCYTES % (AUTO) 8.2 % (2.0-12.0); NEUTROPHILS # (AUTO) 4.9 K/uL (1.8-8.9); NEUTROPHILS % (AUTO) 59.2 % (43.0-81.0); PLATELET COUNT (AUTO) 288 K/uL (150-450); RED BLOOD CELL COUNT(AUTO) 3.33 MIL/uL (4.0-5.2); WHITE BLOOD COUNT (AUTO) 8.2 K/uL (4.3-11.0)
[2020-10-30] MEDS: ACETAMINOPHEN 325 MG TABLET PO PRN (02:05)
--- NOTE | 2020-10-30 02:10 | NUR ---
Patient refused tylenol prior to Peters cath reinsertion.
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
--- NOTE | 2020-10-30 04:47 | NUR ---
Patient combative while trying to reinsert pritchett catheter, staff members came to assist. Difficult to visualize d/t prolapsed uterus. ICU nurse able to assist with insertion. Successful. But d/t patients repeated combative behaviors and pulling out lines that are providing care posing a risk to hurting herself; Without being able to be distracted or reoriented. Obtained New order for adonis. soft wrist restraints.
[2020-10-30] MEDS: BLOOD SUGAR DIAGNOSTIC 1 EACH STRIP IN SCH ×2 (06:48→12:07)
[2020-10-30 06:49] LABS: CALCIUM, SERUM 9.8 mg/dL (8.5-10.1); CARBON DIOXIDE 25 mmol/L (21-32); CHLORIDE 103 mmol/L (98-107); CREATININE 1.5 mg/dL (0.6-1.3); GLUCOSE 165 mg/dL (74-106); POTASSIUM 4.7 mmol/L (3.5-5.1); SODIUM SERUM 137 mmol/L (136-145); UREA NITROGEN, BLOOD 30 mg/dL (7-18)
--- NOTE | 2020-10-30 07:51 | NUR ---
Soft wrist restraints released and blood flow checked as per protocol. No skin breakdown, cap refill <3 seconds to BUE. No signs of distress. No verbal or non-verbal indicators of pain.
[2020-10-30 08:00] VITALS: BP 100/50
[2020-10-30] MEDS: PANTOPRAZOLE 40 MG TABLET.DR PO SCH (08:31)
[2020-10-30] MEDS: AMLODIPINE BESYLATE 10 MG TABLET PO SCH (09:00)
--- NOTE | 2020-10-30 09:27 | NUR ---
WOUND CARE CONSULT: PT SEEN FOR INTACT DEEP TISSUE INJURY TO LEFT HEEL. RECOMMENDATIONS MADE FOR SKIN PROTECTION. DISCUSSED WITH NURSING STAFF. PT IS ON [facility] BED. IN AGREEMENT WITH PLAN OF CARE. Addendum: 10/30/20 at 0928 by ANNIE QUIÑONES WNDNU Amended: Links added.
[2020-10-30] MEDS: DOCUSATE SODIUM 100 MG CAPSULE PO SCH (09:52)
[2020-10-30] MEDS: MULTIVIT W/MINERALS 1 TAB TABLET PO SCH (09:52)
[2020-10-30] MEDS: ASPIRIN EC 81 MG TABLET.DR PO SCH (09:52)
[2020-10-30] MEDS: HYDROGEL DRESSING 90 GM TUBE TP SCH (09:53)
[2020-10-30] MEDS: APIXABAN 2.5 MG TABLET PO SCH (09:54)
[2020-10-30] MEDS: INSULIN REGULAR, HUMAN 100 UNIT/ML 3 ML VIAL SQ PRN (12:18)
--- NOTE | 2020-10-30 15:00 | NUR ---
PATIENT DISCHARGED TO [facility] VIA AMBULANCE. PATIENT IS A/O X1, VERY CONFUSED. RESPONDS TO NAME AND TOUCH. STABLE ON ROOM AIR - NO SOB OR DISTRESS NOTED. NO IV ACCESS NOTED. PATIENT HAS MOFFETT CATHETER - FACILITY REQUESTED TO LEAVE IN. PATIENT KEPT CLEAN AND DRY THROUGHOUT SHIFT. ALL MEDS GIVEN SCHEDULED. WOUND DRESSINGS CHANGED. PATIENT ACCOMPANIED TO LOBBY BY EMT'S - PATIENT LEFT FACILITY AT 1440 VIA AMBULANCE. WRISTBAND REMOVED.
== END 2020-10-30 14:40 | DRG 622 ==
LOC: ER 16:34 → TELE1 20:24 → MEDSG1 10-26 08:59 → MED 10-29 01:08
PROVIDERS: ADMIT Nurse Practitioner Acute Care
PROC: 5A1D70Z Performance of Urinary Filtration, Intermittent, Less than 6 Hours Per Day (ICD-10-PCS; 2020-10-23)
PROC: 05HA33Z Insertion of Infusion Device into Left Brachial Vein, Percutaneous Approach (ICD-10-PCS; 2020-10-23)
PROC: 06HY33Z Insertion of Infusion Device into Lower Vein, Percutaneous Approach (ICD-10-PCS; 2020-10-23)
PROC: 0JB70ZZ Excision of Back Subcutaneous Tissue and Fascia, Open Approach (ICD-10-PCS; principal; 2020-10-25)
PROC: 0JB70ZZ Excision of Back Subcutaneous Tissue and Fascia, Open Approach (ICD-10-PCS; 2020-10-25)
PROC: 05HB33Z Insertion of Infusion Device into Right Basilic Vein, Percutaneous Approach (ICD-10-PCS; 2020-10-25)
DX: E87.5 Hyperkalemia (principal); N17.0 Acute kidney failure with tubular necrosis; I50.33 Acute on chronic diastolic (congestive) heart failure; L89.153 Pressure ulcer of sacral region, stage 3; G93.41 Metabolic encephalopathy; E44.0 Moderate protein-calorie malnutrition; I13.0 Hypertensive heart and chronic kidney disease with heart failure and stage 1 through stage 4 chronic kidney disease, or unspecified chronic kidney disease; N13.30 Unspecified hydronephrosis; I69.351 Hemiplegia and hemiparesis following cerebral infarction affecting right dominant side; E11.22 Type 2 diabetes mellitus with diabetic chronic kidney disease; N18.9 Chronic kidney disease, unspecified; Z20.822 Contact with and (suspected) exposure to COVID-19; Z79.01 Long term (current) use of anticoagulants; I25.10 Atherosclerotic heart disease of native coronary artery without angina pectoris; E78.5 Hyperlipidemia, unspecified; G89.29 Other chronic pain; Z98.61 Coronary angioplasty status; E11.40 Type 2 diabetes mellitus with diabetic neuropathy, unspecified; Z79.899 Other long term (current) drug therapy; Z95.1 Presence of aortocoronary bypass graft; Z88.1 Allergy status to other antibiotic agents; N81.4 Uterovaginal prolapse, unspecified; E87.6 Hypokalemia; F03.90 Unspecified dementia, unspecified severity, without behavioral disturbance, psychotic disturbance, mood disturbance, and anxiety; I49.3 Ventricular premature depolarization; I08.1 Rheumatic disorders of both mitral and tricuspid valves; D64.9 Anemia, unspecified; G93.89 Other specified disorders of brain; I67.2 Cerebral atherosclerosis; K43.9 Ventral hernia without obstruction or gangrene; Z74.01 Bed confinement status
CPT/HCPCS: 36410; 36415; 70450-TC; 71045-TC; 80048-TC; 80076-TC; 81001; 82570-TC; 82962-TC; 83605-TC; 83735-TC; 83880; 84100-TC; 84300-TC; 84484-TC; 85025-TC; 85730-TC; 86704; 86705; 86706; 86803; 87040-TC; 87081-TC; 87086-TC; 87340; 90935-TC; 92526; 92611-TC; 93307-TC; 93970-TC; 97112-TC; 97530-TC; A6248; A6403; G0378; J0610; J0696; J1815; J3490; J7040; J7050; J7060; U0003